=== PATIENT | female | born 1945 | race Caucasian/White ===

== ENCOUNTER 2017-10-04 17:11 | Emergency (ER) | payer MEDICARE ==
[~2017-10-04] VITALS: Ht 157.5 cm; Wt 81.0 kg
[2017-10-04 17:30] VITALS: BP 157/65; PULSE 89; RESP 18; TEMP 97.7; O2SAT 96; O2SAT 98
[2017-10-04 17:37] LABS: AUTOMATED NEUTROPHIL # 6.3 TH/MM3 (1.8-7.7); BASOPHIL # 0.1 TH/MM3 (0-0.2); BASOPHIL % 1.6 % (0.0-2.0); EOSINOPHIL # 0.1 TH/MM3 (0-0.4); EOSINOPHIL % 0.6 % (0.0-4.0); HEMOGLOBIN 15.7 GM/DL (11.6-15.3); LYMPH % 15.1 % (9.0-44.0); LYMPHOCYTE # 1.4 TH/MM3 (1.0-4.8); MEAN CELL VOLUME 92.1 FL (80.0-100.0); MEAN CORPUSCULAR HEMOGLOBIN 32.9 PG (27.0-34.0); MEAN CORPUSCULAR HGB CONC 35.7 % (32.0-36.0); MEAN PLATELET VOLUME 8.8 FL (7.0-11.0); MONO % 11.9 % (0.0-8.0); MONOCYTE # 1.1 TH/MM3 (0-0.9); NEUT % 70.8 % (16.0-70.0); PLATELET COUNT 207 TH/MM3 (150-450); RED BLOOD COUNT 4.78 MIL/MM3 (4.00-5.30); RED CELL DISTRIBUTION WIDTH 12.3 % (11.6-17.2)
--- NOTE | 2017-10-04 17:44 | PD ---
HPI . Chest pain Chief Complaint: Chest Pain Time Seen by Provider: 17:23 Travel History International Travel<30 days: No Contact w/Intl Traveler<30days: No History of Present Illness HPI Patient presents stating that she has just not felt very well for the last couple of days. Her symptoms have included weakness, profound diarrhea and mid back and chest/epigastric discomfort. Symptoms have waxed and waned. She has not noted any exacerbating or relieving factors. She states that her symptoms go from being pretty mild being quite severe. She does have a history of hypertension. She takes aspirin daily. She has been taking her medications normally. She states that she came to us today because she mentioned her symptoms to her daughter who insisted that she come get checked. She reports no recent antibiotics. She reports a history of previous diverticulitis. She has had a previous open cholecystectomy. She is a reformed smoker. She drinks occasional wine socially. [facility] Social History Tobacco Use: No Allergies-Medications (Allergen,Severity, Reaction): Coded Allergies: Penicillins (Verified Allergy, Unknown, rash, 10/04/17) tetracycline (Verified Adverse Reaction, Unknown, out body feeling, ) Reported Meds & Prescriptions Reported Meds & Active Scripts Active Reported Hydrochlorothiazide 25 Mg Tab 25 Mg PO DAILY Lisinopril 40 Mg Tab 40 Mg PO DAILY Carvedilol 6.25 Mg Tab 6.25 Mg PO BID Aspirin Children's (Aspirin) 81 Mg Chew 81 Mg CHEW DAILY Review of Systems Except as stated in HPI: all other systems reviewed are Neg Physical Exam Narrative GENERAL: Awake and alert and in no acute distress. SKIN: warm/dry. HEAD: Normocephalic. Atraumatic. EYES: Pupils equal and round. No scleral icterus. No injection or drainage. ENT: No nasal bleeding or discharge. Mucous membranes pink and moist. NECK: Trachea midline. Full range of motion without pain.. CARDIOVASCULAR: Regular rate and rhythm. Heart sounds are normal. RESPIRATORY: No accessory muscle use. Clear to auscultation. Breath sounds equal bilaterally. GASTROINTESTINAL: Abdomen soft. Epigastric pain which is mild.. Bowel sounds present. Nondistended. MUSCULOSKELETAL: No obvious deformities. NEUROLOGICAL: Awake and alert. No obvious cranial nerve deficits. Motor grossly within normal limits. Normal speech. PSYCHIATRIC: Appropriate mood and affect; insight and judgment normal. Data Data Last Documented VS Vital Signs Date Time Temp Pulse Resp B/P (MAP) Pulse Ox O2 Delivery O2 Flow Rate FiO2 10/04/17 17:30 90 18 96 Room Air 10/04/17 17:30 97.7 157/65 (95) Orders Orders Basic Metabolic Panel (Bmp) (10/04/17 17:23) Complete Blood Count With Diff (10/04/17 17:23) Magnesium (Mg) (10/04/17 17:23) Prothrombin Time / Inr (Pt) (10/04/17 17:23) Act Partial Throm Time (Ptt) (10/04/17 17:23) Troponin I (10/04/17 17:23) Ecg Monitoring (10/04/17 17:23) Iv Access Insert/Monitor (10/04/17 17:23) Oximetry (10/04/17 17:23) Chest, Pa & Lat (10/04/17 17:23) Ct Abd/Pel W Iv Contrast(Rout) (10/04/17 17:44) Morphine Inj (Morphine Inj) (10/04/17 17:45) Ondansetron Inj (Zofran Inj) (10/04/17 17:45) C Diff Toxin Pcr (10/04/17 17:44) Enteric Path (Stool) (10/04/17 17:44) Nitroglycerin 2% Oint (Nitroglycerin 2% (10/04/17 18:00) Labs Laboratory Tests Test 10/04/17 17:30 White Blood Count 9.0 TH/MM3 Red Blood Count 4.78 MIL/MM3 Hemoglobin 15.7 GM/DL Hematocrit 44.0 % Mean Corpuscular Volume 92.1 FL Mean Corpuscular Hemoglobin 32.9 PG Mean Corpuscular Hemoglobin Concent 35.7 % Red Cell Distribution Width 12.3 % Platelet Count 207 TH/MM3 Mean Platelet Volume 8.8 FL Neutrophils (%) (Auto) 70.8 % Lymphocytes (%) (Auto) 15.1 % Monocytes (%) (Auto) 11.9 % Eosinophils (%) (Auto) 0.6 % Basophils (%) (Auto) 1.6 % Neutrophils # (Auto) 6.3 TH/MM3 Lymphocytes # (Auto) 1.4 TH/MM3 Monocytes # (Auto) 1.1 TH/MM3 Eosinophils # (Auto) 0.1 TH/MM3 Basophils # (Auto) 0.1 TH/MM3 CBC Comment DIFF FINAL Differential Comment Prothrombin Time 10.7 SEC Prothromb Time International Ratio 1.1 RATIO Activated Partial Thromboplast Time 25.8 SEC Blood Urea Nitrogen 24 MG/DL Creatinine 1.30 MG/DL Random Glucose 141 MG/DL Calcium Level 10.3 MG/DL Magnesium Level 1.3 MG/DL Sodium Level 136 MEQ/L Potassium Level 3.7 MEQ/L Chloride Level 104 MEQ/L Carbon Dioxide Level 24.1 MEQ/L Anion Gap 8 MEQ/L Estimat Glomerular Filtration Rate 40 ML/MIN Troponin I LESS THAN 0.02 NG/ML MDM Medical Decision Making Medical Screen Exam Complete: Yes Emergency Medical Condition: Yes Medical Record Reviewed: Yes Interpretation(s) EKG shows a sinus rhythm. She has some nonspecific STT wave changes which are diffuse. Differential Diagnosis Differential diagnosis of chest pain includes but is not limited to musculoskeletal pain, pulmonary embolism, acute coronary syndrome, pneumonia, pleurisy Narrative Course Patient presents with a 2 day history of chest pain. Her associated symptoms include back pain and diarrhea. Symptoms have waxed and waned but have not completely subsided. Cardiac evaluation is in process. Because of epigastric tenderness, I am also checking a lipase, stool studies and a CT of abd/pelvis. CBC & BMP Diagram 10/04/17 17:30 Calcium Level 10.3 H, Magnesium Level 1.3 L trop < 0.02 Last Impressions Chest X-Ray 10/04/17 1723 Signed Impressions: Service Date/Time: Wednesday, October 04, 2017 17:43 - CONCLUSION: No acute disease. Randal Santos MD The chest x-ray was independently reviewed by me. Her care is being turned over to the oncoming provider at [address] Diagnosis Primary Impression: Chest pain Qualified Codes: R07.9 - Chest pain, unspecified Additional Impression: Diarrhea Qualified Codes: R19.7 - Diarrhea, unspecified Condition: Liset Olivarez MD Oct 04, 2017 17:44
[2017-10-04] MEDS ORDERED: MORPHINE SULFATE 4 MG/ML INJ IV PUSH ONE (17:45)
[2017-10-04] MEDS ORDERED: ONDANSETRON HCL 4 MG/2 ML VIAL IVP ONE (17:45)
[2017-10-04] MEDS ORDERED: ASPI81CH7 CHEW (17:47)
[2017-10-04] MEDS ORDERED: LISI40TA PO (17:47)
[2017-10-04] MEDS ORDERED: CARV6.252 PO (17:47)
[2017-10-04] MEDS ORDERED: HYDR25TA5 PO (17:47)
[2017-10-04 17:48] LABS: CHLORIDE 104 MEQ/L (98-107); SODIUM (NA) 136 MEQ/L (136-145)
[2017-10-04 17:52] LABS: CALCIUM 10.3 MG/DL (8.5-10.1)
[2017-10-04 17:53] LABS: BICARBONATE 24.1 MEQ/L (21.0-32.0); BLOOD UREA NITROGEN 24 MG/DL (7-18); GLUCOSE,RANDOM 141 MG/DL (74-106); MAGNESIUM 1.3 MG/DL (1.5-2.5)
[2017-10-04 17:54] LABS: INTERNATIONAL NORMALIZED RATIO 1.1 RATIO; PROTHROMBIN TIME - PATIENT 10.7 SEC (9.8-11.6)
[2017-10-04 17:56] LABS: GLOMERULAR FILTRATION RATE 40 ML/MIN (>89)
[2017-10-04] MEDS ORDERED: NITROGLYCERIN 2% OINT 1 GM PACKET TOPICAL ONE (18:00)
[2017-10-04 18:01] LABS: TROPONIN I LESS THAN 0.02 NG/ML (0.02-0.05)
--- NOTE | 2017-10-04 18:18 | RADRPT ---
EXAM DATE/TIME: 10/04/2017 17:43 [facility] COMPARISON: No previous studies available for comparison. INDICATIONS : Chest pain MEDICAL HISTORY : Hypertension. SURGICAL HISTORY : Stents. ENCOUNTER: Initial ACUITY: 2 days PAIN SCORE: 3/10 LOCATION: Bilateral chest FINDINGS: PA and lateral views of the chest demonstrate the lungs to be symmetrically aerated without evidence of mass, infiltrate or effusion. The cardiomediastinal contours are unremarkable. Osseous structure s are intact. CONCLUSION: No acute disease. Randal Santos MD on October 04, 2017 at 18:15 Board Certified Radiologist. This report was verified electronically.
[2017-10-04] MEDS ORDERED: IODIXANOL 320 MG/ML 10 ML VIAL (for Rad CT) IVCONTRAST ONE (18:42)
[2017-10-04 18:47] VITALS: BP 157/61; PULSE 87; RESP 18; O2SAT 98
--- NOTE | 2017-10-04 18:52 | RADRPT ---
EXAM DATE/TIME: 10/04/2017 18:26 [facility] COMPARISON: No previous studies available for comparison. INDICATIONS : Nausea, vomiting, diarrhea, epigastric tenderness, radiates toward her back. IV CONTRAST: 50 cc Visipaque (iodixanol) IV ORAL CONTRAST: No oral contrast ingested. RADIATION DOSE: 20.74 CTDIvol (mGy) MEDICAL HISTORY : Cardiovascular disease. Hypertension. SURGICAL HISTORY : Cholecystectomy. Tubal ligation.Cardiac stents ENCOUNTER: Initial ACUITY: 2 days PAIN SCALE: 3/10 LOCATION: Bilateral upper abdomen TECHNIQUE: Volumetric scanning of the abdomen and pelvis was performed. Using automated exposure control and ad justment of the mA and/or kV according to patient size, radiation dose was kept as low as reasonably achievable to obtain optimal diagnostic quality images. DICOM format image data is available electro nically for review and comparison. FINDINGS: LOWER LUNGS: The visualized lower lungs are clear. LIVER: There is diffuse decreased density within the liver consistent with hepatic steatosis. The gallbladde r is not present. SPLEEN: Normal size without lesion. PANCREAS: Within normal limits. KIDNEYS: Normal in size and shape. There is no stone or hydronephrosis. There is a 1.1 cm low-density mass in the posterior right kidney likely related to a cyst. ADRENAL GLANDS: Within normal limits. VASCULAR: There is no aortic aneurysm. Atherosclerotic calcifications are present. BOWEL/MESENTERY: There are colonic diverticula seen throughout the colon. Significant surrounding inflammatory change is not seen. There appears to be minimal hiatal hernia. There is possible thickening of the distal as pect of the stomach. ABDOMINAL WALL: Within normal limits. RETROPERITONEUM: There is no lymphadenopathy. BLADDER: No wall thickening or mass. REPRODUCTIVE: Within normal limits. INGUINAL: There is no lymphadenopathy or hernia. MUSCULOSKELETAL: Spurs are seen the lumbar spine. CONCLUSION: 1. Diverticula seen throughout the colon without significant inflammatory change. 2. The distal aspect of the stomach appears prominent and possibly thickened. 3. Hepatic steatosis. Jason Grijalva MD on October 04, 2017 at 18:43 Board Certified Radiologist. This report was verified electronically.
--- NOTE | 2017-10-05 00:11 | EKG ---
Date Performed: 10/04/2017 Time Performed: 17:19:39 PTAGE: 72 years EKG: Sinus rhythm INCOMPLETE RIGHT BUNDLE BRANCH BLOCK ST/T wave changes inferolaterally BORDERLINE ECG NO PREVIOUS TRACING DOCTOR: Luke Bullard Interpretating Date/Time 10/05/2017 00:10:36
== END 2017-10-04 19:20 | disposition home or self-care (01) ==
LOC: PHED 17:11
DX: R07.9 Chest pain, unspecified (principal); R19.7 Diarrhea, unspecified; R94.31 Abnormal electrocardiogram [ECG] [EKG]; M54.9 Dorsalgia, unspecified; R53.1 Weakness; I10 Essential (primary) hypertension; Z87.891 Personal history of nicotine dependence
CPT/HCPCS: 71046; 74177; 80048; 83735; 84484; 85025; 85610; 85730; 93005; 96374; 96375; 99285; Q9967